=== PATIENT | male | born 1985 | race Caucasian/White ===

== ENCOUNTER 2017-05-28 19:08 | Emergency (ER) | payer BC ==
[2017-05-28 20:51] VITALS: BP 137/83
--- NOTE | 2017-05-28 21:31 | UC ---
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 WAS LOWERING HIMSELF DOWN WITH A ROPE WHEN HE SLIPPED AND FELL THE LAST 2-3 FEET. LANDED ON RIGHT FOOT AND FELT A POP. NOW HAS SWELLING AND BRUISING TO MEDIAL RLE. SIGNIFICANT PAIN WITH WEIGHT BEARING. IS USING CRUTCHES FOR MOBILITY. - History of Current Complaint Chief Complaint: UCLowerExtremity Stated Complaint: ANKLE,FOOT INJURY Time Seen by Provider: 05/28/17 20:50 Hx Obtained From: Patient Onset/Duration: Sudden Onset, Lasting Hours Severity Initially: Moderate Severity Currently: Moderate Pain Intensity: 2 Pain Scale Used: 0-10 Numeric Aggravating Factor(s): Ambulation Alleviating Factor(s): Rest Able to Bear Weight: Yes - WITH A LOT OF PAIN - Allergies/Home Medications Allergies/Adverse Reactions: Allergies Allergy/AdvReac Type Severity Reaction Status Date / Time No Known Allergies Allergy Verified 05/28/17 20:52 Home Medications: Home Medications NK [No Home Medications Reported] 05/28/17 [History Confirmed 05/28/17] PMH/Surg Hx/FS Hx/Imm Hx Previously Healthy: Yes - Surgical History Surgical History: None - Family History Known Family History: Negative: Hypertension, Diabetes - Social History Alcohol Use: Rare Substance Use Type: None Smoking Status (MU): Never Smoked Tobacco Review of Systems Constitutional: Negative Skin: Bruising Respiratory: Negative Cardiovascular: Negative Gastrointestinal: Negative Musculoskeletal: Edema, Myalgia All Other Systems Reviewed And Are Negative: Yes Physical Exam Triage Information Reviewed: Yes Appearance: Well-Appearing, No Pain Distress, Well-Nourished Vital Signs: Initial Vital Signs Temp 99.9 F 05/28/17 20:47 Pulse 88 05/28/17 20:47 Resp 18 05/28/17 20:47 BP 137/83 05/28/17 20:47 Pulse Ox 100 05/28/17 20:47 Vital Signs Reviewed: Yes Eyes: Positive: Conjunctiva Clear ENT: Positive: Hearing grossly normal Neck: Positive: Supple Respiratory: Positive: No respiratory distress, No accessory muscle use Cardiovascular: Positive: Pulses Normal Abdomen Description: Positive: Soft Musculoskeletal: Positive: ROM Intact, Edema @ - SWELLING MEDIAL RIGHT LOWER LEG JUST PROXIMAL TO MEDIAL MALLEOLUS WITH TENDERNESS TO PALPATION Neurological: Positive: Alert Psychological: Positive: Age Appropriate Behavior Skin: Positive: Other - BRUISING/SWELLING MEDIAL RIGHT LOWER LEG JUST PROXIMAL TO MEDIAL MALLEOLUS Diagnostics - Radiology RIGHT LOWER LEG XRAYS Xray Interpretation: Positive (See Comments) - Focal soft tissue swelling Radiology Interpretation Completed By: Radiologist Lower Extremity Course/Dx - Differential Dx/Diagnosis Provider Diagnoses: RLE HEMATOMA Discharge - Discharge Plan Condition: Stable Disposition: HOME Patient Education Materials: Hematoma (ED) Referrals: Paul Fair MD [Primary Care Provider] - If Needed Additional Instructions: NO BONY INJURY ON XRAY TODAY. REST, ICE, COMPRESS, ELEVATE. OTC MEDS NEEDED FOR DISCOMFORT. GO TO THE ER WITHOUT FAIL IF YOU DEVELOP PROGRESSIVELY WORSENING SWELLING, PAIN , NUMBNESS/TINGLING, COLOR CHANGE OR COOLNESS TO THE FOOT OR ANY OTHER CONCERNING SYMPTOMS.
--- NOTE | 2017-05-28 22:09 | RAD ---
Indication: Medial and distal pain and bruising post fall from ladder. Comparison: September 15, 2011 RIGHT knee radiographs. Technique: AP and lateral views RIGHT lower leg. REPORT AND IMPRESSION: Negative for fracture or malalignment. Focal soft tissue swelling at the medial aspect at the level of the distal diaphysis through distal metaphysis of the tibia. No conspicuous foreign body or subcutaneous emphysema.
== END 2017-05-28 22:49 | disposition home or self-care (01) ==
LOC: UCEAST 19:08
DX: S90.01XA Contusion of right ankle, initial encounter (principal); W17.89XA Other fall from one level to another, initial encounter; Y93.39 Activity, other involving climbing, rappelling and jumping off; Y92.9 Unspecified place or not applicable
CPT/HCPCS: 99201; G0463

== ENCOUNTER 2018-01-23 09:09 | Emergency (ER) | payer BC ==
[2018-01-23 09:54] VITALS: BP 131/76
--- NOTE | 2018-01-23 09:57 | UC ---
Skin Complaint HPI - HPI Summary HPI Summary: 32 yo male presents with right ring finger pain and swelling. He tells me that he was working in his yard 3 days ago and thinks he may have gotten poked by a thorn in this area. Since that time redness, swelling, and pain of the finger has been increasing. He also tells me that he bought a "brass $60 forehead thermometer" that he took his temp with and it read 107.7F yesterday and 102.8F today. Says he did not feel feverish and did not take anything medication for his fever. Denies fever, chills, headache, or drainage from the area. - History of Current Complaint Chief Complaint: UCGeneralIllness Time Seen by Provider: 01/23/18 09:57 Stated Complaint: FEVER,SWOLLEN FINGER Hx Obtained From: Patient Onset/Duration: Gradual Onset Onset Severity: Mild Current Severity: Mild Pain Intensity: 3 Pain Scale Used: 0-10 Numeric - Allergy/Home Medications Allergies/Adverse Reactions: Allergies Allergy/AdvReac Type Severity Reaction Status Date / Time No Known Allergies Allergy Verified 01/23/18 09:49 Review of Systems Constitutional: Negative Skin: Other - Right ring finger pain/swelling/redness Respiratory: Negative Cardiovascular: Negative Neurovascular: Negative Musculoskeletal: Negative Neurological: Negative Psychological: Negative All Other Systems Reviewed And Are Negative: Yes PMH/Surg Hx/FS Hx/Imm Hx - Additional Past Medical History Additional PMH: None Previously Healthy: Yes - Surgical History Surgical History: None - Family History Known Family History: Negative: Hypertension, Diabetes - Social History Occupation: Employed Full-time Lives: With Family Alcohol Use: None Substance Use Type: None Smoking Status (MU): Never Smoked Tobacco Physical Exam - Summary Physical Exam Summary: GENERAL: NAD. WDWN. No pain distress. SKIN: Right ring finger: Mild edema and erythema extending form finger pad to just inferior to the PIP. No sign of puncture or appreciable FB. No streaking, bleeding, or drainage. NECK: Supple. Nontender. No lymphadenopathy. CHEST: No accessory muscle use. Breathing comfortably and in no distress. CV: RRR. Without m/r/g. MSK: Right ring finger: ROM intact, but with inability to fully flex due to edema. NEURO: Alert. CN II-XII grossly intact. Finger sensations intact PSYCH: Age appropriate behavior. Triage Information Reviewed: Yes Vital Signs: Initial Vital Signs Temp 98.7 F 01/23/18 09:49 Pulse 93 01/23/18 09:49 Resp 16 01/23/18 09:49 BP 131/76 01/23/18 09:49 Pulse Ox 98 01/23/18 09:49 Course/Dx - Course Course Of Treatment: Right ring finger cellulitis. I suspect that his temperature he took at home was inaccurate as he did not feel febrile and he is afebrile today. - Diagnoses Provider Diagnoses: Right ring finger cellulitis Discharge - Sign-Out/Discharge Documenting (check all that apply): Discharge/Admit/Transfer - Discharge Plan Condition: Stable Disposition: HOME Prescriptions: Cephalexin CAP* [Keflex CAP*] 500 mg PO TID #21 cap Patient Education Materials: Cellulitis (DC) Referrals: No Primary Care Phys,NOPCP [Primary Care Provider] - Additional Instructions: If you develop a fever, shortness of breath, chest pain, new or worsening symptoms - please call your PCP or go to the ED. 1) If the swelling or redness of your finger increases despite taking the antibiotic, please go to the ER - Billing Disposition and Condition Condition: STABLE Disposition: HOME
== END 2018-01-23 10:09 | disposition home or self-care (01) ==
LOC: UCEAST 09:09
DX: L03.011 Cellulitis of right finger (principal)
CPT/HCPCS: 99212; G0463